=== PATIENT | female | born 1985 | race Caucasian/White ===

== ENCOUNTER 2021-04-29 09:32 | Emergency (ER) | payer OTHER ==
[~2021-04-29] VITALS: Ht 160 cm; Wt 113.4 kg
[2021-04-29] MEDS ORDERED: FLEXERIL PO (14:01)
[2021-04-29 14:13] VITALS: BP 169/98
== END 2021-04-29 14:14 | disposition home or self-care (01) ==
LOC: M.ERS 09:32
DX: S39.012A Strain of muscle, fascia and tendon of lower back, initial encounter (principal); S70.01XA Contusion of right hip, initial encounter; M25.511 Pain in right shoulder; Z90.49 Acquired absence of other specified parts of digestive tract; W00.2XXA Other fall from one level to another due to ice and snow, initial encounter; Y93.89 Activity, other specified; Y92.89 Other specified places as the place of occurrence of the external cause; Y99.8 Other external cause status